=== PATIENT | male | born 1950 | race American Indian/Alaskan Native ===

== ENCOUNTER 2016-12-22 06:18 | Day surgery (SDC) | payer MEDICARE ==
[2016-12-22] MEDS ORDERED: DIPRIVAN 10 MG/ML IV ONE ×2 (06:52)
[2016-12-22] MEDS ORDERED: APRESOLINE ONE (07:29)
[2016-12-22] MEDS ORDERED: WATER FOR IRRIG STERILE IR ONE (07:30)
[2016-12-22] MEDS ORDERED: WATER FOR IRRIG STERILE ONE (07:31)
[2016-12-22] MEDS ORDERED: NACL 0.9% 1000 ML 1,000 ML IV SCH (08:00)
--- NOTE | 2016-12-22 08:30 | Short Stay Summary ---
Short Stay Documentation - Allergies and Medications Current Medications: Allergies No Known Allergies Allergy (Unverified 04/27/15 14:36) Home Medications Medication Instructions Recorded Confirmed Last Taken Type Folic Acid [Folvite] 1 mg PO QDAY 10/01/15 12/22/16 02/11/16 History NIFEdipine XL [Procardia Xl] 60 mg PO BID 10/01/15 12/22/16 12/21/16 History hydrALAZINE [Apresoline TAB] 50 mg PO BID 10/01/15 12/22/16 12/21/16 History Cinacalcet HCl [Sensipar] 60 mg PO DAILY 02/12/16 12/22/16 02/11/16 History Temazepam 30 mg PO QHS PRN 02/12/16 12/22/16 02/11/16 History Vitamin B Comp and C/FA/Zn Cit 0.8 mg PO DAILY 02/12/16 12/22/16 02/11/16 History [Dialyvite 800-Zinc 15 mg Tab] traMADol [Ultram 50 MG tab] 50 mg PO Q6HR PRN 02/12/16 12/22/16 02/11/16 History Active Medications Sodium Chloride (Nacl 0.9% 1000 Ml) 1,000 mls @ 50 mls/hr IV DIRECT ARMEN Last Admin: 12/22/16 07:29 Dose: 50 mls/hr - Brief post op/procedure progress note Date of procedure: 12/22/16 Pre-op diagnosis: Colon cancer screening Post-op diagnosis: same (1. Colon polyp 2. Diverticulosis coli 3. Internal hemorrhoids 4. Poor prep) Procedure: Colonoscopy with snare polypectomy Anesthesia: MAC Findings: as above Surgeon: MUNIR IWLKINS Estimated blood loss: none Pathology: list (1. Ascending colon polyp) Specimen disposition: to lab Condition: stable - Disposition Condition at discharge: Stable Disposition: DC- TO HOME OR SELFCARE Short Stay Discharge Plan Activity: no restrictions Weight Bearing Status: Full Weight Bearing Diet: regular, low salt, renal Follow up with: DILIA ESTEVES MD [Primary Care Provider] - 7 Days
--- NOTE | 2016-12-22 09:06 | Anesthesia Day of Surgery ---
Anesthesia Day of Surgery - Day of Surgery Patient Examined: Yes Patient H&P Reviewed: Yes Patient is NPO: Yes
--- NOTE | 2016-12-22 09:08 | Anesthesia Consultation ---
Anesthesia Consult and Med Hx Date of service: 12/22/16 - Airway Anesthetic Teeth Evaluation: Poor (chipped teeth in front) ROM Head & Neck: Adequate Mental/Hyoid Distance: Adequate Mallampati Class: Class II Intubation Access Assessment: Probably Good - Pulmonary Exam CTA: Yes - Cardiac Exam Cardiac Exam: RRR - Pre-Operative Health Status ASA Pre-Surgery Classification: ASA3 Proposed Anesthetic Plan: MAC - Pre-Anesthesia Comment Pre-Anesthesia Comments: Has Lupus - Pulmonary Hx Smoking: No Hx Asthma: No COPD: Yes - Cardiovascular System Hx Hypertension: Yes (BP was high in preop, gives 10mg hydralazine) Hx Heart Attack/AMI: No Hx Heart Murmur: Yes - Central Nervous System Hx Seizures: No CVA: No - Endocrine Hx Renal Disease: Yes (PD daily) Hx Liver Disease: Yes Hx Non-Insulin Dependent Diabetes: No - Additional Comments Anesthesia Medical History Comments: NAC
--- NOTE | 2016-12-22 11:08 | Post Anesthesia Evaluation ---
- Post Anesthesia Evaluation Patient Participated: Yes Airway Patent: Yes Stable Respiratory Function: Yes Nausea/Vomiting: No Temp > 96.8F: Yes Pain Manageable: Yes Adequeate Hydration: Yes Anesthesia Complications: No Block Receding Appropriately: Not Applicable Patient on Ventilator: No
[2016-12-22 13:00] VITALS: BP 155/93
== END 2016-12-22 06:19 | disposition home or self-care (01) ==
LOC: GIO 06:18
PROVIDERS: ATTEND Internal Medicine Gastroenterology
DX: Z12.11 Encounter for screening for malignant neoplasm of colon (principal); D12.2 Benign neoplasm of ascending colon; K64.8 Other hemorrhoids; K57.30 Diverticulosis of large intestine without perforation or abscess without bleeding; J44.9 Chronic obstructive pulmonary disease, unspecified; I12.0 Hypertensive chronic kidney disease with stage 5 chronic kidney disease or end stage renal disease; N18.6 End stage renal disease; Z99.2 Dependence on renal dialysis; Z79.899 Other long term (current) drug therapy
CPT/HCPCS: 45385; 88305; J0360; J2704; J7030

== ENCOUNTER 2017-08-10 23:57 | Inpatient (IN) | payer MEDICARE ==
[2017-08-11 03:52] LABS: Basophils % (Auto) 0.1 % (0.0-1.8); Hematocrit 38.3 % (35.5-45.6); Lymphocytes # (Auto) 0.8 K/mm3 (1.2-5.4); Lymphocytes % (Auto) 5.3 % (13.4-35.0); Mean Corpuscular HGB Conc 34 % (32-34); Mean Corpuscular Hemoglobin 28 pg (28-32); Mean Corpuscular Volume 82 fl (84-94); Monocytes # (Auto) 1.1 K/mm3 (0.0-0.8); Monocytes % (Auto) 7.2 % (0.0-7.3); Platelet Count 308 K/mm3 (140-440); Red Blood Count 4.67 M/mm3 (3.65-5.03); Red Cell Distribution Width 15.4 % (13.2-15.2)
[2017-08-11 04:09] LABS: Albumin 3.2 g/dL (3.9-5); Calcium 9.2 mg/dL (8.4-10.2)
[2017-08-11] MEDS ORDERED: MORPHINE IV ONE (06:19)
--- NOTE | 2017-08-11 06:47 | Emergency Department Report ---
HPI - General Chief Complaint: Abdominal Pain Time Seen by Provider: 08/11/17 06:08 - HPI HPI: 67-year-old -[place] male presents to the emergency department from home with complaint of a two-day history of generalized abdominal pain, worse in the lower quadrants. It is associated with some nausea and vomiting but he says that part has been "mild." He describes it as abdominal cramping, 10 out of 10 in intensity. The patient has a history of end-stage renal disease on nightly peritoneal dialysis and he has been unable to complete the entire dialysis secondary to the discomfort which worsens during the peritoneal dialysis. He also has a past medical history of COPD not oxygen dependent, hypertension, lupus. The patient's veterinary technician assistant is Dr. Diehl and he has a primary care physician but cannot currently remember their name. No recent travel or sick contacts at home. He denies any chest pain, shortness of breath , fever. ED Past Medical Hx - Past Medical History Previous Medical History?: Yes Hx Hypertension: Yes (BP was high in preop, gives 10mg hydralazine) Hx Heart Attack/AMI: No Hx Liver Disease: Yes (now resolved) Hx Renal Disease: Yes (PD daily) Hx Arthritis: Yes Hx Seizures: No Hx Asthma: No Hx COPD: Yes Additional medical history: Lupus. Patient states he's had multiple failed dialysis grafts to include both arms upper and lower. He currently has a vas cath in the right chest - Surgical History Past Surgical History?: Yes Additional Surgical History: Right hip replacement x 2, Left hip replacement x 1. umbilical hernia repair. two fistulas to right wrist 06/2015, not working. right chest VAS cath. right upper arm fistula, not working. - Social History Smoking Status: Former Smoker Substance Use Type: None - Medications Home Medications: Home Medications Medication Instructions Recorded Confirmed Last Taken Type NIFEdipine XL [Procardia Xl] 60 mg PO BID 10/01/15 08/11/17 08/10/17 History Cinacalcet HCl [Sensipar] 60 mg PO DAILY 02/12/16 08/11/17 02/11/16 History Calcitriol [Rocaltrol] 0.5 mcg PO TID 08/11/17 08/11/17 Unknown History Docusate Sodium [Colace] 100 mg PO BID PRN 08/11/17 08/11/17 08/10/17 History Ergocalciferol [Vitamin D2] 1 cap PO QWEEK 08/11/17 08/11/17 08/10/17 History Fluticasone [Flonase] 2 spray NS QDAY 08/11/17 08/11/17 Unknown History Hydralazine HCl 50 mg PO BID 08/11/17 08/11/17 08/10/17 History Hydroxychloroquine [Plaquenil] 200 mg PO QDAY 08/11/17 08/11/17 08/10/17 History Sevelamer Carbonate [Renvela] 800 mg PO TIDWM 08/11/17 08/11/17 Unknown History predniSONE [Deltasone] 10 mg PO TID 08/11/17 08/11/17 Unknown History sulfaSALAzine [Azulfidine] 500 mg PO QDAY 08/11/17 08/11/17 Unknown History ED Review of Systems ROS: Stated complaint: ABD PAIN Other details as noted in HPI Comment: All other systems reviewed and negative Constitutional: denies: chills, fever Eyes: denies: eye pain, eye discharge, vision change ENT: denies: ear pain, throat pain Respiratory: denies: cough, shortness of breath, wheezing Cardiovascular: denies: chest pain, palpitations Gastrointestinal: abdominal pain, nausea, vomiting Genitourinary: denies: urgency, dysuria Musculoskeletal: denies: back pain, joint swelling, arthralgia Skin: denies: rash, lesions Neurological: denies: headache, weakness, paresthesias Physical Exam - Physical Exam Vital Signs: Vital Signs 08/11/17 08/11/17 08/11/17 02:35 05:32 05:45 Temperature 99 F Pulse Rate 114 H 91 H 101 H Respiratory 18 22 23 Rate Blood Pressure 151/102 132/85 O2 Sat by Pulse 99 96 Oximetry 08/11/17 08/11/17 06:00 06:15 Temperature Pulse Rate 102 H 101 H Respiratory 26 H 22 Rate Blood Pressure 133/88 141/89 O2 Sat by Pulse 96 96 Oximetry Physical Exam: GENERAL: The patient is well-developed well-nourished. HENT: Normocephalic. Atraumatic. Patient has moist mucous membranes. EYES: Extraocular motions are intact. Pupils equal reactive to light bilaterally. NECK: Supple. Trachea is midline. CHEST/LUNGS: Clear to auscultation. Mild tachypnea but no accessory muscle use. There is no respiratory distress noted. HEART/CARDIOVASCULAR: Regular. There is mild tachycardia. There is no murmur. ABDOMEN: Abdomen is soft. There is generalized tenderness to palpation of the abdomen. No guarding. There is a peritoneal catheter in the right lower quadrant of the abdomen. Patient has normal bowel sounds. There is no abdominal distention. SKIN: Skin is warm and dry. NEURO: The patient is awake, alert, and oriented. The patient is cooperative. The patient has no focal neurologic deficits. The patient has normal speech. MUSCULOSKELETAL: There is no tenderness or deformity. There is no limitation range of motion. There is no evidence of acute injury. ED Course Vital Signs 08/11/17 08/11/17 08/11/17 02:35 05:32 05:45 Temperature 99 F Pulse Rate 114 H 91 H 101 H Respiratory 18 22 23 Rate Blood Pressure 151/102 132/85 O2 Sat by Pulse 99 96 Oximetry 08/11/17 08/11/17 06:00 06:15 Temperature Pulse Rate 102 H 101 H Respiratory 26 H 22 Rate Blood Pressure 133/88 141/89 O2 Sat by Pulse 96 96 Oximetry - Consultations Consultation #1: 08/11/17 14:19 I spoke to his veterinary technician assistant, Dr. Diehl, who says that they have been checking him for a cell count when he was seen yesterday for these symptoms. Dr. Diehl also recommends admission so they can try and get him peritoneal dialysis and do further evaluation of his abdominal pain. ED Medical Decision Making - Lab Data Result diagrams: 08/11/17 02:59 08/11/17 02:59 - Radiology Data Radiology results: report reviewed EXAM: CT ABDOMEN PELVIS WO CON HISTORY: Abd pain, concern for peritonitis, peritoneal dialysis associated pain TECHNIQUE: CT images obtained through the Abdomen and Pelvis without contrast. Transaxial,coronal and sagittal reformats are provided. PRIORS: 10/01/2015 FINDINGS: Imaged intrathoracic contents are remarkable for pleural calcification, unchanged right pleural effusion and probable right lower lung rounded atelectasis, all of which appear similar to prior. Left basilar atelectasis/scarring. Trace left pleural effusion. Kidneys are normal in size, axis and position. There is bilateral renal cortical irregularity/scarring. Multiple indeterminate cystic lesions in both kidneys appear similar to prior. A previously seen left lower pole renal cyst measuring up to 3.7 cm on 10/01/2015 is no longer seen. No hydroureteronephrosis. Multiple renal vascular calcifications are present. There may be additional 1 millimeter nonobstructive stones in both collecting systems. No stones are seen within the urinary bladder. The pelvis is partially obscured by streak artifact associated with bilateral hip arthroplasties. A right anterior approach peritoneal dialysis catheter is coiled adjacent to the rectosigmoid junction. No abdominal ascites or adjacent focal fluid collection is identified. The liver, gallbladder, pancreas, spleen, and adrenal glands demonstrate a normal noncontrast appearance. Hollow enteric organs are normal in course and caliber. Large portions of the small bowel and colon are fluid-filled. No edema or stranding is seen adjacent to the intestines. Scattered foci of pneumoperitoneum are noted. No findings of acute appendicitis. Aorta is normal in course and caliber with scattered atherosclerosis. Superficial soft tissues are otherwise unremarkable. No acute or aggressive appearing skeletal findings. Bilateral total hip arthroplasties. IMPRESSION: No abdominal or pelvic ascites or focal fluid collection to suggest abscess formation. Peritoneal dialysis catheter coiled within the pelvis is without associated fluid. There are small foci of free air in the abdomen, which are likely iatrogenic in the setting of dialysis. Fluid throughout much of the small bowel and colon may be infectious or inflammatory in etiology. There is no evident wall thickening, adjacent edema or stranding. Chronic right fibrothorax with pleural effusion and rounded atelectasis appears similar to 10/01/2015. Multiple indeterminate cystic lesions in both kidneys appear similar to 10/01/2015. The largest left renal lesion seen on prior exam is no longer identified today and may have involuted/ruptured. Consider follow-up noncontrast MRI of the kidneys if no additional studies are available for comparison. Dr. Demarco discussed findings with Dr. Stringer at 0646 central Time on 08/11/2017 immediately following the examination. Transcribed By: MB Dictated By: CAITLYN DEMARCO MD Electronically Authenticated By: CAITLYN DEMARCO MD Signed Date/Time: 08/11/17 1140 - Medical Decision Making Patient presents with generalized abdominal pain and was sent in to rule out peritonitis. Patient does have a leukocytosis with a mild left shift but is afebrile. He has some generalized abdominal pain but they do not appear to be peritoneal signs. Urinalysis shows a urinary tract infection. He was started on some IV antibiotics. I spoke to his veterinary technician assistant, Dr. Diehl, who says that they have been checking him for a cell count when he was seen yesterday for these symptoms. Dr. Diehl also recommends admission so they can try and get him peritoneal dialysis and do further evaluation of his abdominal pain. Critical Care Time: No Critical care attestation.: If time is entered above; I have spent that time in minutes in the direct care of this critically ill patient, excluding procedure time. ED Disposition Clinical Impression: Peritoneal dialysis catheter in place, ESRD needing dialysis Abdominal pain Qualifiers: Abdominal location: generalized Qualified Code(s): R10.84 - Generalized abdominal pain UTI (urinary tract infection) Qualifiers: Urinary tract infection type: acute cystitis Hematuria presence: without hematuria Qualified Code(s): N30.00 - Acute cystitis without hematuria Disposition: OP ADMIT IP TO THIS HOSP Is pt being admited?: Yes Condition: Stable Time of Disposition: 11:39
[2017-08-11] MEDS ORDERED: BENADRYL ONE (07:04)
[2017-08-11] MEDS: BENADRYL IV ONE ×2 (07:07→09:58)
[2017-08-11 07:17] LABS: Bilirubin,Urine NEG (Negative); Blood,Urine NEG (Negative); Color,Urine Yellow (Yellow); Mucus,Urine FEW /HPF; Urobilinogen,Urine < 2.0 mg/dL (<2.0)
--- NOTE | 2017-08-11 07:58 | Cat Scan Report ---
FINAL REPORT EXAM: CT ABDOMEN PELVIS WO CON HISTORY: Abd pain, concern for peritonitis, peritoneal dialysis associated pain TECHNIQUE: CT images obtained through the Abdomen and Pelvis without contrast. Transaxial,coronal and sagittal reformats are provided. PRIORS: 10/01/2015 FINDINGS: Imaged intrathoracic contents are remarkable for pleural calcification, unchanged right pleural effusion and probable right lower lung rounded atelectasis, all of which appear similar to prior. Left basilar atelectasis/scarring. Trace left pleural effusion. Kidneys are normal in size, axis and position. There is bilateral renal cortical irregularity/scarring. Multiple indeterminate cystic lesions in both kidneys appear similar to prior. A previously seen left lower pole renal cyst measuring up to 3.7 cm on 10/01/2015 is no longer seen. No hydroureteronephrosis. Multiple renal vascular calcifications are present. There may be additional 1 millimeter nonobstructive stones in both collecting systems. No stones are seen within the urinary bladder. The pelvis is partially obscured by streak artifact associated with bilateral hip arthroplasties. A right anterior approach peritoneal dialysis catheter is coiled adjacent to the rectosigmoid junction. No abdominal ascites or adjacent focal fluid collection is identified. The liver, gallbladder, pancreas, spleen, and adrenal glands demonstrate a normal noncontrast appearance. Hollow enteric organs are normal in course and caliber. Large portions of the small bowel and colon are fluid-filled. No edema or stranding is seen adjacent to the intestines. Scattered foci of pneumoperitoneum are noted. No findings of acute appendicitis. Aorta is normal in course and caliber with scattered atherosclerosis. Superficial soft tissues are otherwise unremarkable. No acute or aggressive appearing skeletal findings. Bilateral total hip arthroplasties. IMPRESSION: No abdominal or pelvic ascites or focal fluid collection to suggest abscess formation. Peritoneal dialysis catheter coiled within the pelvis is without associated fluid. There are small foci of free air in the abdomen, which are likely iatrogenic in the setting of dialysis. Fluid throughout much of the small bowel and colon may be infectious or inflammatory in etiology. There is no evident wall thickening, adjacent edema or stranding. Chronic right fibrothorax with pleural effusion and rounded atelectasis appears similar to 10/01/2015. Multiple indeterminate cystic lesions in both kidneys appear similar to 10/01/2015. The largest left renal lesion seen on prior exam is no longer identified today and may have involuted/ruptured. Consider follow-up noncontrast MRI of the kidneys if no additional studies are available for comparison. Dr. Villaseñor discussed findings with Dr. Stringer at 0646 central Time on 08/11/2017 immediately following the examination.
[2017-08-11] MEDS ORDERED: LEVAQUIN 750MG/150ML 750 MG/150 ML BAG IV ONE (08:16)
--- NOTE | 2017-08-11 11:53 | History and Physical Report ---
History of Present Illness Date of examination: 08/11/17 Date of admission: 08/11/17 Chief complaint: abdominal pain History of present illness: 67-year-old -[place] male with h/o ESRD on PD, HTN and Lupus presents to the emergency department from home with complaint of a two-day history of generalized abdominal pain, associated with some nausea and vomiting. He describes it as abdominal cramping, 10 out of 10 in intensity. The patient's fire alarm inspector is Dr. Diehl and he was seen by dr diehl on Mon, when he complained about abd pain along with constipation and bloating, however no fever, chills, nausea, vomiting, dysuria, CP, SOB reported at that time. Patient was given stool softners/laxative, also obtained peritoneal Cx, and cell count. Pt's abdominal pain worsened progressively despite having BMs and last night intensity was 10/10. He has been unable to complete the entire dialysis last night secondary to the abdominal discomfort which prompted him to present to ER. In the ER his work up showed elevated white count, abdominal tenderness and UA suggestive of UTI. Cell count from outpatient PD clinic showed WBC count > 4000, with 38% mononuclear and 61% polymorph, RBC 76, which is consistent with acute peritonitis. Patient denies any recent travel or sick contacts at home. He denies any chest pain, shortness of breath, fever. He is getting admitted for further work up and evaluation. Past History Past Medical History: ESRD, hypertension, other (lupus) Past Surgical History: hernia repair, total hip replacement, Other (multiple AV fistula placement proceedings) Social history: Lives alone. denies: smoking, alcohol abuse, prescription drug abuse, IV drug use Family history: hypertension Medications and Allergies Allergies Allergy/AdvReac Type Severity Reaction Status Date / Time No Known Allergies Allergy Unverified 04/27/15 14:36 Home Medications Medication Instructions Recorded Confirmed Last Taken Type NIFEdipine XL [Procardia Xl] 60 mg PO BID 10/01/15 08/11/17 08/10/17 History Cinacalcet HCl [Sensipar] 60 mg PO DAILY 02/12/16 08/11/17 02/11/16 History Calcitriol [Rocaltrol] 0.5 mcg PO TID 08/11/17 08/11/17 Unknown History Docusate Sodium [Colace] 100 mg PO BID PRN 08/11/17 08/11/1708/10/18 History Ergocalciferol [Vitamin D2] 1 cap PO QWEEK 08/11/17 08/11/17 08/10/17 History Fluticasone [Flonase] 2 spray NS QDAY 08/11/17 08/11/17 Unknown History Hydralazine HCl 50 mg PO BID 08/11/17 08/11/17 08/10/17 History Hydroxychloroquine [Plaquenil] 200 mg PO QDAY 08/11/17 08/11/17 08/10/17 History Sevelamer Carbonate [Renvela] 800 mg PO TIDWM 08/11/17 08/11/17 Unknown History predniSONE [Deltasone] 10 mg PO TID 08/11/17 08/11/17 Unknown History sulfaSALAzine [Azulfidine] 500 mg PO QDAY 08/11/17 08/11/17 Unknown History Active Meds: Active Medications Heparin Sodium (Porcine) (Heparin) 5,000 unit SUB-Q Q8HR [facility] Peritoneal Dialysis Solution (Dianeal Low Calcium W/1.5% Dextrose) 2,000 ml IP Q6HR [facility] Review of Systems Constitutional: no weight loss, no fever, no chills, no anorexia Cardiovascular: no chest pain, no palpitations, no edema, no dyspnea on exertion Respiratory: no cough, no shortness of breath, no wheezing Gastrointestinal: abdominal pain, nausea, vomiting, no constipation, no coffee ground emesis, no BRBPR Genitourinary Male: no urinary frequency, no urinary hesitancy Musculoskeletal: no neck stiffness, no low back pain Integumentary: no rash, no pruritis Neurological: no weakness, no numbness, no tingling, no ataxia Psychiatric: no anxiety, no memory loss, no change in appetite Endocrine: no cold intolerance, no heat intolerance, no polyphagia, no polydipsia, no polyuria Hematologic/Lymphatic: no easy bruising, no easy bleeding Allergic/Immunologic: no urticaria, no seasonal allergies Exam - Constitutional Vitals: Temp Pulse Resp BP Pulse Ox 99 F 101 H 32 H 126/85 98 08/11/17 02:35 08/11/17 07:00 08/11/17 07:00 08/11/17 07:00 08/11/17 07:00 General appearance: Present: mild distress, well-nourished - EENT Eyes: Present: PERRL ENT: hearing intact, clear oral mucosa - Neck Neck: Present: supple, normal ROM - Respiratory Respiratory effort: normal Respiratory: bilateral: CTA - Cardiovascular Heart Sounds: Present: S1 & S2. Absent: rub, click - Extremities Extremities: pulses symmetrical, No edema Peripheral Pulses: within normal limits - Abdominal General gastrointestinal: Present: soft, tender, non-distended, normal bowel sounds - Integumentary Integumentary: Present: clear, warm, dry - Musculoskeletal Musculoskeletal: gait normal, strength equal bilaterally - Psychiatric Psychiatric: appropriate mood/affect, intact judgment & insight - Neurologic Neurologic: CNII-XII intact, moves all extremities Results - Labs CBC & Chem 7: 08/12/17 04:30 08/12/17 04:30 Labs: Abnormal lab results 08/11/17 08/11/17 08/11/17 Range/Units 02:59 02:59 06:30 WBC 15.7 H (4.5-11.0) K/mm3 MCV 82 L (84-94) fl RDW 15.4 H (13.2-15.2) % Lymph % (Auto) 5.3 L (13.4-35.0) % Lymph # 0.8 L (1.2-5.4) K/mm3 Cole # 1.1 H (0.0-0.8) K/mm3 Seg Neutrophils % 87.4 H (40.0-70.0) % Seg Neutrophils # 13.7 H (1.8-7.7) K/mm3 Sodium 136 L (137-145) mmol/L Chloride 95.8 L (98-107) mmol/L BUN 40 H (9-20) mg/dL Creatinine 8.0 H (0.8-1.5) mg/dL Glucose 112 H (75-100) mg/dL Albumin 3.2 L (3.9-5) g/dL Urine WBC (Auto) 106.0 H (0.0-6.0) /HPF - Imaging and Cardiology CT scan - abdomen: report reviewed (no focal fluid collection to describe abdominal or pelvic abscess) Assessment and Plan Abdomianl pain with n/v due to SBP ESRD, on HD Sepsis due to UTI/SBP Peritonitis/ SBP UTI HTN, uncontrolled h/o Lupus Anemia of CD -Admit to remote tele -send peritoneal fluid for gm stain and CX - Place on empiric abx - consulted nephrology for HD - resume home meds, follow cx - Cont PD per nephrology - heparin for DVT
[2017-08-11] MEDS ORDERED: MORPHINE IV PRN (11:55)
[2017-08-11] MEDS ORDERED: ZOFRAN IV PRN (11:55)
[2017-08-11] MEDS ORDERED: NON-FORMULARY (Sevelamer Carbonate [Renvela] 800 MG) PO SCH (12:00)
[2017-08-11] MEDS ORDERED: TYLENOL PO PRN (13:00)
[2017-08-11] MEDS ORDERED: ROCALTROL PO SCH (14:00)
[2017-08-11] MEDS ORDERED: VANCOMYCIN/NS 1 GM/250 ML 1 GM/250 ML BAG IV SCH (14:00)
--- NOTE | 2017-08-11 14:06 | Consultation ---
History of Present Illness - Reason for Consult Consult date: 08/11/17 end stage renal disease Requesting physician: MARIA T STEWART - History of Present Illness This is a 67 yo AAM with past medical history of hypertension, lupus, ESRD on PD , after having multiple AV access failures, now presenting with diffuse abdominal pain for the last 2-3 days. Pt was seen by me at PD clinic on Mon, when he started to complain about abd pain along with constipation and bloating , however no fever, chills, nausea, vomiting, dysuria, CP, SOB reported at that time. pt was given stool softners/laxative, we also obtained peritoneal Cx, and cell count. pt's abdominal pain worsened progressively despite having BMs and last night intensity was 10/10 which prompted him to present to ER. Cell count from outpatient PD clinic showed WBC count > 4000, with 38% mononuclear and 61% polymorph, RBC 76, which is consistent with acute peritonitis. UA also showed e/ o UTI. Renal consult requested for management of ESRD/PD and treatment of peritonitis Past History Past Medical History: ESRD, hypertension, other (lupus) Past Surgical History: hernia repair, total hip replacement, Other (multiple AV fistula placement proceedings) Social history: Lives alone. denies: smoking, alcohol abuse, prescription drug abuse, IV drug use Family history: hypertension Medications and Allergies Allergies Allergy/AdvReac Type Severity Reaction Status Date / Time No Known Allergies Allergy Unverified 04/27/15 14:36 Home Medications Medication Instructions Recorded Confirmed Last Taken Type NIFEdipine XL [Procardia Xl] 60 mg PO BID 10/01/15 08/11/17 08/10/17 History Cinacalcet HCl [Sensipar] 60 mg PO DAILY 02/12/16 08/11/17 02/11/16 History Calcitriol [Rocaltrol] 0.5 mcg PO TID 08/11/17 08/11/17 Unknown History Docusate Sodium [Colace] 100 mg PO BID PRN 08/11/17 08/11/17 08/10/17 History Ergocalciferol [Vitamin D2] 1 cap PO QWEEK 08/11/17 08/11/17 08/10/17 History Fluticasone [Flonase] 2 spray NS QDAY 08/11/17 08/11/17 Unknown History Hydralazine HCl 50 mg PO BID 0308/11/17 08/10/17 History Hydroxychloroquine [Plaquenil] 200 mg PO QDAY 08/11/17 08/11/17 08/10/17 History Sevelamer Carbonate [Renvela] 800 mg PO TIDWM 08/11/17 08/11/17 Unknown History predniSONE [Deltasone] 10 mg PO TID 08/11/17 08/11/17 Unknown History sulfaSALAzine [Azulfidine] 500 mg PO QDAY 08/11/17 08/11/17 Unknown History Active Meds: Active Medications Acetaminophen (Tylenol) 650 mg PO Q4H PRN PRN Reason: Pain MILD(1-3)/Fever >100.5/HINES Calcitriol (Rocaltrol) 0.5 mcg PO TID [facility] Cinacalcet (Sensipar) 60 mg PO QDAY [facility] Docusate Sodium (Colace) 100 mg PO BID PRN PRN Reason: Constipation Ergocalciferol (Vitamin D2) 50,000 unit PO Th [facility] Famotidine (Pepcid) 20 mg IV QDAY [facility] Fluticasone Propionate (Flonase) 100 mcg NS QDAY [facility] Heparin Sodium (Porcine) (Heparin) 5,000 unit SUB-Q Q8HR [facility] Hydralazine HCl (Apresoline) 50 mg PO BID [facility] Hydroxychloroquine Sulfate (Plaquenil) 200 mg PO QDAY [facility] Ceftriaxone Sodium 1 gm/ (Sodium Chloride) 20 mls @ 2 mls/min IV Q12H [facility] Morphine Sulfate (Morphine) 2 mg IV Q4H PRN PRN Reason: Pain, Moderate (4-6) Nifedipine (Procardia Xl) 60 mg PO BID [facility] Ondansetron HCl (Zofran) 4 mg IV Q8H PRN PRN Reason: Nausea And Vomiting Oxycodone/Acetaminophen (Percocet 5/325) 1 tab PO Q6H PRN PRN Reason: Pain, Moderate (4-6) Peritoneal Dialysis Solution (Dianeal Low Calcium W/1.5% Dextrose) 2,000 ml IP Q6HR [facility] Prednisone (Deltasone) 10 mg PO TID [facility] Sevelamer Carbonate (Renvela) 800 mg PO AC [facility] Sodium Chloride (Sodium Chloride Flush Syringe 10 Ml) 10 ml IV BID [facility] Sodium Chloride (Sodium Chloride Flush Syringe 10 Ml) 10 ml IV PRN PRN PRN Reason: LINE FLUSH Sulfasalazine (Azulfidine) 500 mg PO QDAY [facility] Review of Systems All systems: negative Constitutional: weakness, malaise Gastrointestinal: abdominal pain, nausea, constipation, loss of appetite Exam - Vital Signs Vital signs: Vital Signs Temp Pulse Resp BP Pulse Ox 99 F 114 H 18 151/102 99 08/11/17 02:35 08/11/17 02:35 08/11/17 02:35 08/11/17 02:35 08/11/17 02:35 - General Appearance General appearance: well-developed, well-nourished, appears stated age, moderate distress EENT: ATNC, PERRL, mucous membranes moist Neck: Present: neck supple Respiratory: Clear to Ascultation Heart: regular, S1S2 Gastrointestinal: Present: normoactive bowel sounds, tenderness, distended, other (PD cath site c/d/i ) Integumentary: no rash, other (no edema ) Neurologic: no focal deficit, alert and oriented x3, strength 5/5, CN 3-12 intact Psychiatric: mood/affect appropriate, cooperative Results - Lab Results 08/11/17 02:59 08/11/17 02:59 Most recent lab results Calcium 9.2 mg/dL (8.4-10.2) 08/11/17 02:59 Laboratory Tests 08/11/17 08/11/17 02:59 06:30 Calcium 9.2 Total Bilirubin 0.50 AST 13 ALT 7 Alkaline Phosphatase 81 Total Protein 7.4 Albumin/Globulin Ratio 0.8 Urine Color Yellow Urine Turbidity Clear Urine pH 7.0 Ur Specific [place] 1.015 Urine Protein 100 mg/dl Urine Glucose (UA) 50 Urine Ketones Neg Urine Blood Neg Urine Nitrite Neg Urine Bilirubin Neg Urine Urobilinogen < 2.0 Ur Leukocyte Esterase Lg Urine WBC (Auto) 106.0 H Urine RBC (Auto) 6.0 U Epithel Cells (Auto) 7.0 Urine Mucus Few Assessment and Plan - Patient Problems (1) Peritonitis Current Visit: Yes Status: Acute Plan to address problem: awaiting peritoneal culture result. cont empiric treatment with IV vanco by level and cefepime for now. will send repeat peritoneal cell count in AM. further management depending on peritoneal culture/sensitivities (2) ESRD needing dialysis Current Visit: Yes Status: Chronic Plan to address problem: cont PD with 2.5% dineal solution, 2L dwell volume 4x daily (3) UTI (urinary tract infection) Current Visit: Yes Status: Acute Qualifiers: Urinary tract infection type: acute cystitis Hematuria presence: without hematuria Qualified Code(s): N30.00 - Acute cystitis without hematuria Plan to address problem: ABXs treatment as above (4) Hypertension Current Visit: No Status: Acute Plan to address problem: BP controlled (5) Secondary hyperparathyroidism (of renal origin) Current Visit: Yes Status: Acute Plan to address problem: cont sensipar/calcitriol
[2017-08-11] MEDS ORDERED: cefTRIAXone 1 GM in NACL 0.9% 20 ML IV SCH (14:30)
[2017-08-11] MEDS ORDERED: MAXIPIME/NS 2 GM/100 ML 2 GM/100 ML BAG IV SCH (15:00)
[2017-08-11] MEDS ORDERED: VANCOMYCIN 1,250 MG in NACL 0.9% 250ML 250 ML IV ONE (15:30)
[2017-08-11] MEDS: DIANEAL LOW CALCIUM W/1.5% DEXTROSE IP SCH ×3 (16:05→23:09)
[2017-08-11] MEDS ORDERED: HEPARIN ONE (16:08)
[2017-08-11] MEDS: HEPARIN SUB-Q SCH ×2 (16:12→21:52)
[2017-08-11] MEDS ORDERED: DELTASONE ONE (16:15)
[2017-08-11] MEDS: DELTASONE PO SCH ×2 (16:17→20:55)
[2017-08-11] MEDS: MAXIPIME 1 GM in NACL 0.9% 20 ML IV SCH (18:43)
[2017-08-11] MEDS: RENVELA PO SCH (18:54)
[2017-08-11] MEDS: SODIUM CHLORIDE FLUSH SYRINGE 10 ML IV PRN (19:30)
[2017-08-11] MEDS: APRESOLINE PO SCH (21:50)
[2017-08-11] MEDS: PROCARDIA XL PO SCH (21:50)
[2017-08-11] MEDS: ROCALTROL PO SCH (21:51)
[2017-08-11] MEDS: PERCOCET 5/325 PO PRN (21:52)
[2017-08-11] MEDS ORDERED: NON-FORMULARY (Hydralazine Hcl [Hydralazine Hcl] 50 MG) PO SCH (22:00)
[2017-08-11] MEDS ORDERED: ROCEPHIN/NS 1 GM/50 ML 1 GM/50 ML BAG IV SCH (22:00)
[2017-08-11] MEDS: SODIUM CHLORIDE FLUSH SYRINGE 10 ML IV SCH (22:05)
[2017-08-12 05:35] LABS: Basophils % (Auto) 0.1 % (0.0-1.8); Hematocrit 36.6 % (35.5-45.6); Hemoglobin 12.5 gm/dl (11.8-15.2); Lymphocytes # (Auto) 0.8 K/mm3 (1.2-5.4); Lymphocytes % (Auto) 8.4 % (13.4-35.0); Mean Corpuscular HGB Conc 34 % (32-34); Mean Corpuscular Hemoglobin 28 pg (28-32); Mean Corpuscular Volume 83 fl (84-94); Monocytes # (Auto) 0.3 K/mm3 (0.0-0.8); Platelet Count 275 K/mm3 (140-440); Red Cell Distribution Width 15.1 % (13.2-15.2)
[2017-08-12] MEDS: DIANEAL LOW CALCIUM W/1.5% DEXTROSE IP SCH ×3 (05:49→18:43)
[2017-08-12] MEDS: HEPARIN SUB-Q SCH ×3 (06:12→22:15)
[2017-08-12 06:21] LABS: Calcium 8.6 mg/dL (8.4-10.2)
[2017-08-12] MEDS: DELTASONE PO SCH ×3 (08:18→20:29)
[2017-08-12] MEDS: RENVELA PO SCH ×3 (08:18→16:37)
[2017-08-12] MEDS: APRESOLINE PO SCH ×2 (09:44→22:14)
[2017-08-12] MEDS: PEPCID IV SCH (09:44)
[2017-08-12] MEDS: FLONASE NS SCH (09:46)
[2017-08-12] MEDS: ROCALTROL PO SCH ×2 (09:47→22:14)
[2017-08-12] MEDS: PROCARDIA XL PO SCH ×2 (09:47→22:15)
[2017-08-12] MEDS: PLAQUENIL PO SCH (09:47)
[2017-08-12] MEDS: AZULFIDINE PO SCH (09:48)
[2017-08-12] MEDS: SODIUM CHLORIDE FLUSH SYRINGE 10 ML IV SCH ×2 (09:53→22:16)
[2017-08-12] MEDS ORDERED: NON-FORMULARY (Cinacalcet Hcl [Sensipar] 60 MG) PO SCH (10:00)
[2017-08-12] MEDS ORDERED: SENSIPAR PO SCH (10:00)
--- NOTE | 2017-08-12 12:37 | Progress Note ---
Assessment and Plan Abdomianl pain with n/v due to SBP ESRD, on HD Sepsis due to UTI/SBP Peritonitis/ SBP UTI HTN, uncontrolled h/o Lupus Anemia of CD -send peritoneal fluid for gm stain and CX following PD - consulted on empiric abx - resumed home meds, follow cx - Cont PD per nephrology - heparin for DVT Brief History: 67-year-old -Surinamese male with h/o ESRD on PD, HTN and Lupus presents to the emergency department from home with complaint of a two- day history of generalized abdominal pain, associated with some nausea and vomiting. Patient was given stool softners/laxative outpt, also obtained peritoneal Cx, and cell count. Cell count from outpatient PD clinic showed WBC count > 4000, with 38% mononuclear and 61% polymorph, RBC 76, which is consistent with acute peritonitis. He was admitted for further work up and evaluation. physical exam: General appearance: Present: mild distress, well-nourished - EENT Eyes: Present: PERRL ENT: hearing intact, clear oral mucosa - Neck Neck: Present: supple, normal ROM - Respiratory Respiratory effort: normal Respiratory: bilateral: CTA - Cardiovascular Heart Sounds: Present: S1 & S2. Absent: rub, click - Extremities Extremities: pulses symmetrical, No edema Peripheral Pulses: within normal limits - Abdominal General gastrointestinal: Present: soft, tender, non-distended, normal bowel sounds - Integumentary Integumentary: Present: clear, warm, dry - Musculoskeletal Musculoskeletal: gait normal, strength equal bilaterally - Psychiatric Psychiatric: appropriate mood/affect, intact judgment & insight - Neurologic Neurologic: CNII-XII intact, moves all extremities Subjective Date of service: 08/12/17 Interval history: Pt seen and examined states abdominal pain much improved tolerating diet Objective - Constitutional Vitals: Vital Signs - 12hr 08/12/17 08/12/17 08/12/17 02:58 07:35 09:44 Temperature 98.4 F 98.0 F Pulse Rate 90 100 H 100 H Pulse Rate [ Apical] Respiratory 20 18 Rate Blood Pressure 153/102 133/71 133/71 O2 Sat by Pulse 95 94 Oximetry 08/12/17 10:00 Temperature Pulse Rate Pulse Rate [ 100 H Apical] Respiratory 18 Rate Blood Pressure O2 Sat by Pulse 94 Oximetry - Labs CBC & Chem 7: 08/12/17 04:30 08/12/17 04:30 Labs: Abnormal lab results 08/12/17 08/12/17 Range/Units 04:30 04:30 MCV 83 L (84-94) fl Lymph % (Auto) 8.4 L (13.4-35.0) % Lymph # 0.8 L (1.2-5.4) K/mm3 Seg Neutrophils % 88.5 H (40.0-70.0) % Seg Neutrophils # 8.7 H (1.8-7.7) K/mm3 Chloride 96.7 L (98-107) mmol/L BUN 50 H (9-20) mg/dL Creatinine 9.2 H (0.8-1.5) mg/dL
[2017-08-12] MEDS: MAXIPIME 1 GM in NACL 0.9% 20 ML IV SCH (15:21)
[2017-08-12] MEDS: SODIUM CHLORIDE FLUSH SYRINGE 10 ML IV PRN (15:22)
[2017-08-12] MEDS: PERCOCET 5/325 PO PRN (15:27)
--- NOTE | 2017-08-12 16:10 | Progress Note ---
Assessment and Plan - Patient Problems (1) Peritonitis Current Visit: Yes Status: Acute Plan to address problem: PD fluid cell count was high. Follow up PD fluid culture and sensitivity. Continue empiric antibiotics for now (2) Hypertensive chronic kidney disease with stage 5 chronic kidney disease or end stage renal disease Current Visit: Yes Status: Acute Plan to address problem: Follow up blood pressure on current medications (3) Secondary hyperparathyroidism (of renal origin) Current Visit: Yes Status: Acute Plan to address problem: Give Sensipar on calcitriol at bedtime to avoid nausea (4) ESRD needing dialysis Current Visit: Yes Status: Chronic Plan to address problem: Resume peritoneal dialysis. Subjective Date of service: 08/12/17 Principal diagnosis: ESRD with Peritonitis Interval history: Patient seen lying in bed. He feels better today. Pain is improved. Patient had vomiting after taking Sensipar and calcitriol. He usually takes them at bedtime to avoid this symptom. Just received his first peritoneal dialysis exchange since admission. Objective - Exam Narrative Exam: Elderly male lying in bed in no acute distress HEENT: NCAT, pink oral mucous membrane Neck: Supple, no venous distention CVS: S1S2 RRR with no murmur, rub or gallop Chest: Clear to auscultation Abdomen: Protuberant, soft, tenderness with rebound, no organomegaly, bowel sounds are present Extremities: No edema Neuro: Awake, alert no focal deficits - Vital Signs Vital signs: Vital Signs - 12hr 08/12/17 08/12/17 08/12/17 07:35 09:44 10:00 Temperature 98.0 F Pulse Rate 100 H 100 H Pulse Rate [ 100 H Apical] Respiratory 18 18 Rate Blood Pressure 133/71 133/71 O2 Sat by Pulse 94 94 Oximetry 08/12/17 08/12/17 14:02 15:27 Temperature 98.0 F Pulse Rate Pulse Rate [ Apical] Respiratory 20 18 Rate Blood Pressure 119/75 O2 Sat by Pulse Oximetry - Lab 08/12/17 04:30 08/12/17 04:30 Most recent lab results Calcium 8.6 mg/dL (8.4-10.2) 08/12/17 04:30
[2017-08-12 21:56] LABS: Total Cells Counted 100 /mm3
[2017-08-12] MEDS: SENSIPAR PO SCH (22:14)
[2017-08-13] MEDS: DIANEAL LOW CALCIUM W/1.5% DEXTROSE IP SCH ×4 (01:00→18:13)
[2017-08-13] MEDS: PERCOCET 5/325 PO PRN ×2 (02:29→13:54)
[2017-08-13 04:38] LABS: Hematocrit 36.5 % (35.5-45.6); Hemoglobin 12.5 gm/dl (11.8-15.2); Mean Corpuscular HGB Conc 34 % (32-34); Mean Corpuscular Hemoglobin 28 pg (28-32); Mean Corpuscular Volume 82 fl (84-94); Platelet Count 300 K/mm3 (140-440); Red Blood Count 4.45 M/mm3 (3.65-5.03); Red Cell Distribution Width 15.3 % (13.2-15.2)
[2017-08-13 04:59] LABS: Calcium 8.7 mg/dL (8.4-10.2)
[2017-08-13] MEDS: HEPARIN SUB-Q SCH ×3 (06:27→22:15)
[2017-08-13] MEDS: DELTASONE PO SCH ×3 (08:15→21:57)
[2017-08-13] MEDS: RENVELA PO SCH ×3 (08:15→16:44)
[2017-08-13] MEDS: PROCARDIA XL PO SCH ×2 (09:45→22:15)
[2017-08-13] MEDS: AZULFIDINE PO SCH (09:45)
[2017-08-13] MEDS: PLAQUENIL PO SCH (09:45)
[2017-08-13] MEDS: PEPCID IV SCH (09:46)
[2017-08-13] MEDS: APRESOLINE PO SCH ×2 (09:52→22:12)
[2017-08-13] MEDS: SODIUM CHLORIDE FLUSH SYRINGE 10 ML IV SCH (09:52)
[2017-08-13] MEDS: FLONASE NS SCH (09:53)
--- NOTE | 2017-08-13 12:37 | Progress Note ---
Assessment and Plan Abdomianl pain with n/v due to SBP ESRD, on HD Sepsis due to UTI/SBP Peritonitis/ SBP UTI HTN, uncontrolled h/o Lupus Anemia of CD - follow result peritoneal fluid gm stain and CX - continue on empiric abx - resumed home meds, - Cont PD per nephrology - heparin for DVT Brief History: 67-year-old -[place] male with h/o ESRD on PD, HTN and Lupus presents to the emergency department from home with complaint of a two- day history of generalized abdominal pain, associated with some nausea and vomiting. Patient was given stool softners/laxative outpt, also obtained peritoneal Cx, and cell count. Cell count from outpatient PD clinic showed WBC count > 4000, with 38% mononuclear and 61% polymorph, RBC 76, which is consistent with acute peritonitis. He was admitted for further work up and evaluation. physical exam: General appearance: Present: mild distress, well-nourished - EENT Eyes: Present: PERRL ENT: hearing intact, clear oral mucosa - Neck Neck: Present: supple, normal ROM - Respiratory Respiratory effort: normal Respiratory: bilateral: CTA - Cardiovascular Heart Sounds: Present: S1 & S2. Absent: rub, click - Extremities Extremities: pulses symmetrical, No edema Peripheral Pulses: within normal limits - Abdominal General gastrointestinal: Present: soft, tender, non-distended, normal bowel sounds - Integumentary Integumentary: Present: clear, warm, dry - Musculoskeletal Musculoskeletal: gait normal, strength equal bilaterally - Psychiatric Psychiatric: appropriate mood/affect, intact judgment & insight - Neurologic Neurologic: CNII-XII intact, moves all extremities Subjective Date of service: 08/13/17 Principal diagnosis: ESRD with Peritonitis Interval history: Pt seen and examined states abdominal pain much improved tolerating diet, peritoneal fluid cx result pending Objective - Constitutional Vitals: Vital Signs - 12hr 08/13/17 08/13/17 08/13/17 03:07 07:40 09:49 Temperature 98.0 F 98.4 F Pulse Rate 96 H 99 H 95 H Pulse Rate [ Apical] Respiratory 18 18 18 Rate Blood Pressure 106/56 144/68 Blood Pressure 140/86 [Right] O2 Sat by Pulse 96 95 94 Oximetry 08/13/17 08/13/17 09:52 10:00 Temperature Pulse Rate 92 H Pulse Rate [ 99 H Apical] Respiratory 18 Rate Blood Pressure 144/68 Blood Pressure [Right] O2 Sat by Pulse 95 Oximetry - Labs CBC & Chem 7: 08/14/17 05:14 08/14/17 05:14 Labs: Abnormal lab results 08/13/17 08/13/17 Range/Units 04:07 04:07 WBC 11.7 H (4.5-11.0) K/mm3 MCV 82 L (84-94) fl RDW 15.3 H (13.2-15.2) % Sodium 131 L D (137-145) mmol/L Chloride 90.9 L (98-107) mmol/L BUN 49 H (9-20) mg/dL Creatinine 8.8 H (0.8-1.5) mg/dL Glucose 168 H (75-100) mg/dL
--- NOTE | 2017-08-13 15:40 | Progress Note ---
Assessment and Plan - Patient Problems (1) Peritonitis Current Visit: Yes Status: Acute Plan to address problem: PD fluid cell count still quite high. Follow up PD fluid culture and sensitivity. Continue empiric antibiotics for now (2) Hypertensive chronic kidney disease with stage 5 chronic kidney disease or end stage renal disease Current Visit: Yes Status: Acute Plan to address problem: Follow up blood pressure on current medications (3) Secondary hyperparathyroidism (of renal origin) Current Visit: Yes Status: Acute Plan to address problem: Give Sensipar on calcitriol at bedtime to avoid nausea (4) ESRD needing dialysis Current Visit: Yes Status: Chronic Plan to address problem: Continue peritoneal dialysis on current prescription.. Subjective Date of service: 08/13/17 Principal diagnosis: ESRD with Peritonitis Interval history: Patient seen lying in bed. He feels better today. Pain is improving. PD fluid still a dark yellow. No nausea or vomiting. Sister and her fianc at bedside Objective - Exam Narrative Exam: Elderly male lying in bed in no acute distress HEENT: NCAT, pink oral mucous membrane Neck: Supple, no venous distention CVS: S1S2 RRR with no murmur, rub or gallop Chest: Clear to auscultation Abdomen: Protuberant, soft, mild tenderness improving, no organomegaly, bowel sounds are present Extremities: No edema Neuro: Awake, alert no focal deficits - Vital Signs Vital signs: Vital Signs - 12hr 08/13/17 08/13/17 08/13/17 07:40 09:49 09:52 Temperature 98.4 F Pulse Rate 99 H 95 H 92 H Pulse Rate [ Apical] Respiratory 18 18 Rate Blood Pressure 106/56 144/68 144/68 O2 Sat by Pulse 95 94 Oximetry 08/13/17 08/13/17 10:00 13:20 Temperature 98.7 F Pulse Rate 96 H Pulse Rate [ 99 H Apical] Respiratory 18 18 Rate Blood Pressure 129/52 O2 Sat by Pulse 95 96 Oximetry - Lab 08/13/17 04:07 08/13/17 04:07 Most recent lab results Calcium 8.7 mg/dL (8.4-10.2) 08/13/17 04:07 Phosphorus 4.30 mg/dL (2.5-4.5) 08/13/17 04:07
[2017-08-13] MEDS: SODIUM CHLORIDE FLUSH SYRINGE 10 ML IV PRN (16:01)
[2017-08-13] MEDS: MAXIPIME 1 GM in NACL 0.9% 20 ML IV SCH (16:01)
[2017-08-13] MEDS: SENSIPAR PO SCH (22:14)
[2017-08-13] MEDS: ROCALTROL PO SCH (22:15)
[2017-08-14] MEDS: DIANEAL LOW CALCIUM W/1.5% DEXTROSE IP SCH ×2 (00:34→06:31)
[2017-08-14] MEDS: SODIUM CHLORIDE FLUSH SYRINGE 10 ML IV SCH ×3 (02:01→22:39)
[2017-08-14] MEDS: PERCOCET 5/325 PO PRN ×2 (02:01→19:34)
[2017-08-14 05:34] LABS: Hematocrit 34.8 % (35.5-45.6); Hemoglobin 11.9 gm/dl (11.8-15.2); Lymphocytes # (Auto) 0.6 K/mm3 (1.2-5.4); Lymphocytes % (Auto) 6.5 % (13.4-35.0); Mean Corpuscular HGB Conc 34 % (32-34); Mean Corpuscular Hemoglobin 28 pg (28-32); Mean Corpuscular Volume 83 fl (84-94); Monocytes # (Auto) 0.6 K/mm3 (0.0-0.8); Monocytes % (Auto) 6.2 % (0.0-7.3); Platelet Count 303 K/mm3 (140-440); Red Blood Count 4.22 M/mm3 (3.65-5.03)
[2017-08-14 05:57] LABS: Calcium 7.6 mg/dL (8.4-10.2)
[2017-08-14] MEDS: HEPARIN SUB-Q SCH ×3 (06:30→22:43)
[2017-08-14] MEDS: RENVELA PO SCH ×3 (07:51→16:22)
[2017-08-14] MEDS: DELTASONE PO SCH ×3 (07:51→19:34)
[2017-08-14] MEDS: AZULFIDINE PO SCH (09:43)
[2017-08-14] MEDS: PROCARDIA XL PO SCH ×2 (09:43→22:38)
[2017-08-14] MEDS: PLAQUENIL PO SCH (09:44)
[2017-08-14] MEDS: APRESOLINE PO SCH ×2 (09:45→22:38)
[2017-08-14] MEDS: PEPCID IV SCH (09:45)
[2017-08-14] MEDS: FLONASE NS SCH (09:46)
--- NOTE | 2017-08-14 10:13 | Progress Note ---
Assessment and Plan - Patient Problems (1) Peritonitis Current Visit: Yes Status: Acute Plan to address problem: PD fluid cell count was not done yesterday. Follow up PD fluid cell count. If improving, patient could be discharged to continue broad empiric antibiotics for 2 weeks for culture-negative PD related peritonitis (2) Hypertensive chronic kidney disease with stage 5 chronic kidney disease or end stage renal disease Current Visit: Yes Status: Acute Plan to address problem: Follow up blood pressure on current medications (3) Secondary hyperparathyroidism (of renal origin) Current Visit: Yes Status: Acute Plan to address problem: Give Sensipar on calcitriol at bedtime to avoid nausea (4) ESRD needing dialysis Current Visit: Yes Status: Chronic Plan to address problem: Continue peritoneal dialysis on current prescription except change to high calcium dialysate since patient is developing hypocalcemia. Subjective Date of service: 08/14/17 Principal diagnosis: ESRD with Peritonitis Interval history: Patient seen lying in bed. He feels better today. Pain is improving. No nausea or vomiting. PD fluid culture done at the outpatient dialysis clinic so far has no growth Objective - Exam Narrative Exam: Elderly male lying in bed in no acute distress HEENT: NCAT, pink oral mucous membrane Neck: Supple, no venous distention CVS: S1S2 RRR with no murmur, rub or gallop Chest: Clear to auscultation Abdomen: Protuberant, soft, mild tenderness improving, no organomegaly, bowel sounds are present Extremities: No edema Neuro: Awake, alert no focal deficits - Vital Signs Vital signs: Vital Signs - 12hr 08/13/17 08/14/17 08/14/17 22:12 03:50 05:01 Temperature 98.9 F Pulse Rate 99 H 98 H Pulse Rate [ 99 H Apical] Respiratory Rate Blood Pressure 135/79 Blood Pressure [Right] O2 Sat by Pulse 96 96 Oximetry 08/14/17 08/14/17 08/14/17 05:07 07:40 08:10 Temperature 98.2 F Pulse Rate 95 H Pulse Rate [ 95 H Apical] Respiratory 18 18 Rate Blood Pressure 117/82 Blood Pressure 121/78 [Right] O2 Sat by Pulse 94 96 96 Oximetry 08/14/17 09:45 Temperature Pulse Rate 89 Pulse Rate [ Apical] Respiratory Rate Blood Pressure 128/82 Blood Pressure [Right] O2 Sat by Pulse Oximetry - Lab 08/14/17 05:14 08/14/17 05:14 Most recent lab results Calcium 7.6 mg/dL (8.4-10.2) L 08/14/17 05:14 Phosphorus 4.30 mg/dL (2.5-4.5) 08/13/17 04:07
[2017-08-14] MEDS: DIANEAL PD-2 W/1.5% DEXTROSE IP SCH ×2 (12:13→18:12)
--- NOTE | 2017-08-14 13:57 | Discharge Summary ---
Providers - Providers Date of Admission: 08/11/17 11:39 Date of discharge: 08/14/17 Attending physician: ROSY BUTT 08/11/17 11:29 Consult to Physician [CONS] Routine Comment: Consulting Provider: MATTEO GARCIA Physician Instructions: CALLED DR GARCIA @0815 08/12/17(MARIS) Reason For Exam: dialysis, ckd Primary care physician: MATTEO GARCIA Hospitalization Condition: Stable Hospital course: Brief History: 67-year-old -Irish male with h/o ESRD on PD, HTN and Lupus presents to the emergency department from home with complaint of a two- day history of generalized abdominal pain, associated with some nausea and vomiting. Patient was given stool softners/laxative outpt, also obtained peritoneal Cx, and cell count. Cell count from outpatient PD clinic showed WBC count > 4000, with 38% mononuclear and 61% polymorph, RBC 76, which is consistent with acute peritonitis. He was admitted for further work up and evaluation. Discharge Diagnosis: Abdomianl pain with n/v due to SBP ESRD, on HD Sepsis due to UTI/SBP Peritonitis/ SBP UTI HTN, uncontrolled h/o Lupus Anemia of CD - negative peritoneal fluid CX - continue on empiric abx - resumed home meds, - Cont PD per nephrology - heparin for DVT physical exam: General appearance: Present: mild distress, well-nourished - EENT Eyes: Present: PERRL ENT: hearing intact, clear oral mucosa - Neck Neck: Present: supple, normal ROM - Respiratory Respiratory effort: normal Respiratory: bilateral: CTA - Cardiovascular Heart Sounds: Present: S1 & S2. Absent: rub, click - Extremities Extremities: pulses symmetrical, No edema Peripheral Pulses: within normal limits - Abdominal General gastrointestinal: Present: soft, tender, non-distended, normal bowel sounds - Integumentary Integumentary: Present: clear, warm, dry - Musculoskeletal Musculoskeletal: gait normal, strength equal bilaterally - Psychiatric Psychiatric: appropriate mood/affect, intact judgment & insight - Neurologic Neurologic: CNII-XII intact, moves all extremities Disposition: DC-01 TO HOME OR SELFCARE Time spent for discharge: 32 minutes Exam - Constitutional Vitals: Temp Pulse Resp BP Pulse Ox 98.2 F 95 H 18 128/82 96 08/14/17 07:40 08/14/17 10:00 08/14/17 10:00 08/14/17 09:45 08/14/17 10:00 Plan Follow up with: MATTEO GARCIA MD [Primary Care Provider] - 3-5 Days
--- NOTE | 2017-08-14 14:04 | Progress Note ---
Assessment and Plan Abdomianl pain with n/v due to SBP ESRD, on HD Sepsis due to UTI/SBP Peritonitis/ SBP UTI HTN, uncontrolled h/o Lupus Anemia of CD - negative peritoneal fluid gm stain and CX - continue on empiric abx. Discussed with ID RECOMMENDED vancomycin with PD and levaquin po for 2 weeks - resumed home meds, - Cont PD per nephrology - heparin for DVT - Wait for nephrology and CM to set up abx outpt Brief History: 67-year-old -[place] male with h/o ESRD on PD, HTN and Lupus presents to the emergency department from home with complaint of a two- day history of generalized abdominal pain, associated with some nausea and vomiting. Patient was given stool softners/laxative outpt, also obtained peritoneal Cx, and cell count. Cell count from outpatient PD clinic showed WBC count > 4000, with 38% mononuclear and 61% polymorph, RBC 76, which was consistent with acute peritonitis. He was admitted for further work up and evaluation. physical exam: General appearance: Present: mild distress, well-nourished - EENT Eyes: Present: PERRL ENT: hearing intact, clear oral mucosa - Neck Neck: Present: supple, normal ROM - Respiratory Respiratory effort: normal Respiratory: bilateral: CTA - Cardiovascular Heart Sounds: Present: S1 & S2. Absent: rub, click - Extremities Extremities: pulses symmetrical, No edema Peripheral Pulses: within normal limits - Abdominal General gastrointestinal: Present: soft, nontender, non-distended, normal bowel sounds - Integumentary Integumentary: Present: clear, warm, dry - Musculoskeletal Musculoskeletal: gait normal, strength equal bilaterally - Psychiatric Psychiatric: appropriate mood/affect, intact judgment & insight - Neurologic Neurologic: CNII-XII intact, moves all extremities Subjective Date of service: 08/14/17 Principal diagnosis: ESRD with Peritonitis Interval history: Pt seen and examined states abdominal pain much improved tolerating diet, peritoneal fluid cx result negative Objective - Constitutional Vitals: Vital Signs - 12hr 08/14/17 08/14/17 08/14/17 03:50 05:01 05:07 Temperature 98.9 F Pulse Rate 98 H Pulse Rate [ 99 H Apical] Respiratory Rate Blood Pressure Blood Pressure 121/78 [Right] O2 Sat by Pulse 96 96 94 Oximetry 08/14/17 08/14/17 08/14/17 07:40 09:45 10:00 Temperature 98.2 F Pulse Rate 95 H 89 Pulse Rate [ 95 H Apical] Respiratory 18 18 Rate Blood Pressure 117/82 128/82 Blood Pressure [Right] O2 Sat by Pulse 96 96 Oximetry - Labs CBC & Chem 7: 08/14/17 05:14 08/14/17 05:14 Labs: Abnormal lab results 08/14/17 08/14/17 Range/Units 05:14 05:14 Hct 34.8 L (35.5-45.6) % MCV 83 L (84-94) fl Lymph % (Auto) 6.5 L (13.4-35.0) % Lymph # 0.6 L (1.2-5.4) K/mm3 Seg Neutrophils % 87.3 H (40.0-70.0) % Seg Neutrophils # 8.5 H (1.8-7.7) K/mm3 Sodium 136 L (137-145) mmol/L Chloride 95.5 L (98-107) mmol/L BUN 46 H (9-20) mg/dL Creatinine 9.5 H (0.8-1.5) mg/dL Glucose 109 H (75-100) mg/dL Calcium 7.6 L (8.4-10.2) mg/dL
[2017-08-14] MEDS: SODIUM CHLORIDE FLUSH SYRINGE 10 ML IV PRN (15:38)
[2017-08-14] MEDS: MAXIPIME 1 GM in NACL 0.9% 20 ML IV SCH (15:38)
[2017-08-14] MEDS: COLACE PO PRN ×2 (18:14→22:43)
[2017-08-14] MEDS: SENSIPAR PO SCH (22:37)
[2017-08-14] MEDS: ROCALTROL PO SCH (22:38)
[2017-08-15] MEDS: DIANEAL PD-2 W/1.5% DEXTROSE IP SCH ×4 (00:24→18:27)
[2017-08-15 02:54] LABS: Total Cells Counted 100 /mm3
[2017-08-15] MEDS: HEPARIN SUB-Q SCH ×3 (06:52→22:00)
[2017-08-15] MEDS: RENVELA PO SCH ×3 (08:56→15:51)
[2017-08-15] MEDS: PEPCID PO SCH ×2 (08:56→10:33)
[2017-08-15] MEDS: DELTASONE PO SCH ×3 (08:56→21:14)
[2017-08-15] MEDS: APRESOLINE PO SCH ×3 (08:56→21:14)
[2017-08-15] MEDS: PLAQUENIL PO SCH ×2 (08:57→10:34)
[2017-08-15] MEDS: PROCARDIA XL PO SCH ×3 (08:57→21:14)
[2017-08-15] MEDS: AZULFIDINE PO SCH ×2 (08:57→10:33)
[2017-08-15] MEDS: SODIUM CHLORIDE FLUSH SYRINGE 10 ML IV PRN (08:58)
[2017-08-15] MEDS: SODIUM CHLORIDE FLUSH SYRINGE 10 ML IV SCH ×2 (08:59→21:15)
--- NOTE | 2017-08-15 09:00 | Consultation ---
History of Present Illness - Reason for Consult Consult date: 08/15/17 peritonitis Requesting physician: ROSY BUTT - History of Present Illness 67 years old male with history of ESRD on PD, PD cath placed in October 2016, HTN and Lupus; admitted on 08/11/2018 due to 40 hours history of crampy abdominal pain, diffuse, associated with nausea and vomiting. Pain became 10 out of 10 in intensity. He had recently constipation and bloating. Patient was given laxative and abdominal pain became worse. Patient denies seeing any cloudy effusate. Denies any recent fever, cough, shortness of breath. Patient had the fluid exam done by his outpatient hemodialysis provider. Cell count from outpatient PD clinic showed WBC count > 4000, with 38% mononuclear and 61% polymorph, RBC 76, which is consistent with acute peritonitis. In the emergency room, initial temperature was 99, heart rate 114, respiration 18, O2 sat 99, blood pressure 151/102. Initial white count 15.7. Hemoglobin 13. Platelets 308. That evening 8. Urinalysis show 106 white blood cells and large leukocyte esterase. Peritoneal fluid was hazy with 17,875 white blood cells and 90% of neutrophils. CT of the abdomen showed no collections or abscesses. Currently right fibrothorax and pleural effusion. Multiple kidney lesions. Microbiology: Blood cultures: 08/11 ngtd Urine cultures: 08/11 10-100K mixed bacteria Peritoneal fluid cultures: 08/12 ngtd Current Antimicrobials: cefepime 08/11 Previous Antimicrobials: Past History Past Medical History: ESRD, hypertension, other (lupus) Past Surgical History: hernia repair, total hip replacement, Other (multiple AV fistula placement proceedings) Social history: Lives alone. denies: smoking, alcohol abuse, prescription drug abuse, IV drug use Family history: hypertension Medications and Allergies Allergies Allergy/AdvReac Type Severity Reaction Status Date / Time No Known Allergies Allergy Unverified 04/27/15 14:36 Home Medications Medication Instructions Recorded Confirmed Last Taken Type NIFEdipine XL [Procardia Xl] 60 mg PO BID 10/01/15 08/11/17 08/10/17 History Cinacalcet HCl [Sensipar] 60 mg PO DAILY 02/12/16 08/11/17 02/11/16 History Calcitriol [Rocaltrol] 0.5 mcg PO TID 08/11/17 08/11/17 Unknown History Docusate Sodium [Colace] 100 mg PO BID PRN 08/11/17 08/11/17 08/10/17 History Ergocalciferol [Vitamin D2] 1 cap PO QWEEK 08/11/17 08/11/17 08/10/17 History Fluticasone [Flonase] 2 spray NS QDAY 08/11/17 08/11/17 Unknown History Hydralazine HCl 50 mg PO BID 08/11/17 08/11/17 08/10/17 History Hydroxychloroquine [Plaquenil] 200 mg PO QDAY 08/11/17 08/11/17 08/10/17 History Sevelamer Carbonate [Renvela] 800 mg PO TIDWM 08/11/17 08/11/17 Unknown History predniSONE [Deltasone] 10 mg PO TID 08/11/17 08/11/17 Unknown History sulfaSALAzine [Azulfidine] 500 mg PO QDAY 08/11/17 08/11/17 Unknown History Active Meds: Active Medications Acetaminophen (Tylenol) 650 mg PO Q4H PRN PRN Reason: Pain MILD(1-3)/Fever >100.5/HINES Last Admin: 08/13/17 18:52 Dose: 650 mg Calcitriol (Rocaltrol) 1 mcg PO QHS [facility] Last Admin: 08/14/17 22:38 Dose: 1 mcg Cinacalcet (Sensipar) 60 mg PO QHS [facility] Last Admin: 08/14/17 22:37 Dose: 60 mg Docusate Sodium (Colace) 100 mg PO BID PRN PRN Reason: Constipation Last Admin: 08/14/17 22:43 Dose: 100 mg Ergocalciferol (Vitamin D2) 50,000 unit PO Th [facility] Famotidine (Pepcid) 20 mg PO DAILY [facility] Fluticasone Propionate (Flonase) 100 mcg NS QDAY [facility] Last Admin: 08/14/17 09:46 Dose: Not Given Heparin Sodium (Porcine) (Heparin) 5,000 unit SUB-Q Q8HR [facility] Last Admin: 08/15/17 06:52 Dose: 5,000 unit Hydralazine HCl (Apresoline) 50 mg PO BID [facility] Last Admin: 08/14/17 22:38 Dose: 50 mg Hydroxychloroquine Sulfate (Plaquenil) 200 mg PO QDAY [facility] Last Admin: 08/14/17 09:44 Dose: 200 mg Cefepime HCl 1 gm/ Sodium (Chloride) 20 mls @ 2 mls/min IV Q24H [facility] Last Admin: 08/14/17 15:38 Dose: 2 mls/min Morphine Sulfate (Morphine) 2 mg IV Q4H PRN PRN Reason: Pain, Moderate (4-6) Last Admin: 08/13/17 21:57 Dose: 2 mg Nifedipine (Procardia Xl) 60 mg PO BID [facility] Last Admin: 08/14/17 22:38 Dose: 60 mg Ondansetron HCl (Zofran) 4 mg IV Q8H PRN PRN Reason: Nausea And Vomiting Last Admin: 08/13/17 22:07 Dose: 4 mg Oxycodone/Acetaminophen (Percocet 5/325) 1 tab PO Q6H PRN PRN Reason: Pain, Moderate (4-6) Last Admin: 08/14/17 19:34 Dose: 1 tab Peritoneal Dialysis Solution (Dianeal Pd-2 W/1.5% Dextrose) 2,000 ml IP Q6HR [facility] Last Admin: 08/15/17 06:44 Dose: 2,000 ml Prednisone (Deltasone) 10 mg PO TID [facility] Last Admin: 08/14/17 19:34 Dose: 10 mg Sevelamer Carbonate (Renvela) 800 mg PO AC [facility] Last Admin: 08/14/17 16:22 Dose: 800 mg Sodium Chloride (Sodium Chloride Flush Syringe 10 Ml) 10 ml IV BID [facility] Last Admin: 08/14/17 22:39 Dose: 10 ml Sodium Chloride (Sodium Chloride Flush Syringe 10 Ml) 10 ml IV PRN PRN PRN Reason: LINE FLUSH Last Admin: 08/14/17 15:38 Dose: 10 ml Sulfasalazine (Azulfidine) 500 mg PO QDAY [facility] Last Admin: 08/14/17 09:43 Dose: 500 mg Review of Systems ROS unobtainable: due to endotracheal tube, due to mental status All systems: negative (as HPI rest of 10 point review system negative) Physical Examination - Physical Exam Narrative exam: General appearance: Alert in NAD, conversant Eyes: anicteric sclerae, moist conjunctivae; no lid-lag; PERRLA HENT: Atraumatic; oropharynx clear with moist mucous membranes and no mucosal ulcerations/no oral thrush; normal hard and soft palate. Normal external ears. Neck: Trachea midline; supple, no thyromegaly or lymphadenopathy Lungs: CTA, with normal respiratory effort and no intercostal retractions CV: RRR, no murmurs Abdomen: Soft, non tender +PD cath Extremities: No peripheral edema or extremity lymphadenopathy Skin: Normal temperature, turgor and texture; no rash, ulcers or subcutaneous nodules Psych: Appropriate affect, alert and oriented to person, place and time. Neuro: alert and oriented x 3. Moving all extermities Lines: No CVL / PICC - Constitutional Vitals: Vital Signs Temp Pulse Resp BP Pulse Ox 99.2 F 106 H 20 134/81 91 08/15/17 07:48 08/15/17 07:48 08/15/17 07:48 08/15/17 07:48 08/15/17 07:48 Temperature -Last 24 Hours Temperature 99.2 F Temperature 98.5 F Temperature 97.9 F Temperature 98.6 F Results - Labs CBC & Chem 7: 08/14/17 05:14 08/14/17 05:14 Assessment and Plan Assessment: 1) Sepsis: Present on admission, manifested by low grade fever, tachycardia, leukocytosis. Etiology most likely PD catheter-associated peritonitis +/- UTI 2) PD catheter-associated peritonitis: cultures negative -outpatient fluid WBC 4,000 -fluid WBC 17,875 -repeat fluid WBC 41 3) UTI: urine cx 10-100K mixed bacteria 4) ESRD on PD Plan: -restart vancomycin via PD -continue cefepime IV -obtain outpatient peritoneal cultures -upon discharge will ask Renal to please order vancomycin via PD and levaquin 500 mg PO q48h for total 14 days until 08/29/17 Thank you for your consultation, will follow up with you. Rachele Long MD Infectious Diseases Specialist [facility] ([facility] M [phone] O [phone]
[2017-08-15] MEDS: FLONASE NS SCH (10:34)
[2017-08-15] MEDS ORDERED: VANCOMYCIN PHARMACY TO DOSE IV SCH (13:00)
[2017-08-15] MEDS ORDERED: VANCOMYCIN/0.45 NS 1 GM/250 ML 1 GM/250 ML BAG IV SCH (13:00)
[2017-08-15] MEDS ORDERED: MORPHINE IV PRN (13:00)
[2017-08-15] MEDS: MAXIPIME 1 GM in NACL 0.9% 20 ML IV SCH (15:50)
--- NOTE | 2017-08-15 17:14 | Progress Note ---
Assessment and Plan Assessment and plan: --End-stage renal disease on peritoneal dialysis; continue PD per schedule --Sepsis secondary to peritonitis due to peritoneal dialysis Cultures negative to date, continue vancomycin and Levaquin ID following, vancomycin during dialysis, Levaquin oral will be set up upon discharge --Sepsis secondary to urinary tract infection; continue current antibiotics --Hypertension; moderate controlled, continue current antihypertensives and when necessary medications --History of lupus; stable on medications --Anemia of chronic disease; closely monitor H&H transfuse as needed --DVT prophylaxis; heparin renal dose --DC planning. Case management; for outpatient antibiotics plan: Levaquin Possible discharge in 1-2 days if stable, cleared by nephrology Consults and recommendations noted and appreciated Plan of care is reviewed with the patient and his nurse History Interval history: Patient seen and examined medical records reviewed No new events reported by the nursing staff Receiving antibiotics for peritonitis Patient feels better Alert awake oriented 3 not in acute distress Vital signs reviewed Hospitalist Physical - Constitutional Vitals: Temp Pulse Resp BP Pulse Ox 99.2 F 100 H 20 160/103 98 08/15/17 07:48 08/15/17 14:08 08/15/17 07:48 08/15/17 14:08 08/15/17 14:08 General appearance: Present: no acute distress, well-nourished - EENT Eyes: Present: PERRL, EOM intact - Neck Neck: Present: supple, normal ROM - Respiratory Respiratory effort: normal Respiratory: bilateral: diminished, negative: rales, rhonchi, wheezing - Cardiovascular Rhythm: regular Heart Sounds: Present: S1 & S2 - Extremities Extremities: no ischemia, No edema - Abdominal General gastrointestinal: soft, non-tender, non-distended, normal bowel sounds - Integumentary Integumentary: Present: clear, warm - Psychiatric Psychiatric: appropriate mood/affect, cooperative - Neurologic Neurologic: CNII-XII intact, moves all extremities Results - Labs CBC & Chem 7: 08/14/17 05:14 08/14/17 05:14 Labs: Laboratory Last Values WBC 9.8 K/mm3 (4.5-11.0) 08/14/17 05:14 RBC 4.22 M/mm3 (3.65-5.03) 08/14/17 05:14 Hgb 11.9 gm/dl (11.8-15.2) 08/14/17 05:14 Hct 34.8 % (35.5-45.6) L 08/14/17 05:14 MCV 83 fl (84-94) L 08/14/17 05:14 MCH 28 pg (28-32) 08/14/17 05:14 MCHC 34 % (32-34) 08/14/17 05:14 RDW 15.0 % (13.2-15.2) 08/14/17 05:14 Plt Count 303 K/mm3 (140-440) 08/14/17 05:14 Lymph % (Auto) 6.5 % (13.4-35.0) L 08/14/17 05:14 [place] % (Auto) 6.2 % (0.0-7.3) 08/14/17 05:14 Eos % (Auto) 0.0 % (0.0-4.3) 08/14/17 05:14 Baso % (Auto) 0.0 % (0.0-1.8) 08/14/17 05:14 Lymph # 0.6 K/mm3 (1.2-5.4) L 08/14/17 05:14 [place] # 0.6 K/mm3 (0.0-0.8) 08/14/17 05:14 Eos # 0.0 K/mm3 (0.0-0.4) 08/14/17 05:14 Baso # 0.0 K/mm3 (0.0-0.1) 08/14/17 05:14 Seg Neutrophils % 87.3 % (40.0-70.0) H 08/14/17 05:14 Seg Neutrophils # 8.5 K/mm3 (1.8-7.7) H 08/14/17 05:14 Sodium 136 mmol/L (137-145) L 08/14/17 05:14 Potassium 4.2 mmol/L (3.6-5.0) 08/14/17 05:14 Chloride 95.5 mmol/L (98-107) L 08/14/17 05:14 Carbon Dioxide 26 mmol/L (22-30) 08/14/17 05:14 Anion Gap 19 mmol/L 08/14/17 05:14 BUN 46 mg/dL (9-20) H 08/14/17 05:14 Creatinine 9.5 mg/dL (0.8-1.5) H 08/14/17 05:14 Estimated GFR 7 ml/min 08/14/17 05:14 BUN/Creatinine Ratio 5 % 08/14/17 05:14 Glucose 109 mg/dL (75-100) H 08/14/17 05:14 Calcium 7.6 mg/dL (8.4-10.2) L 08/14/17 05:14 Phosphorus 4.30 mg/dL (2.5-4.5) 08/13/17 04:07 Total Bilirubin 0.50 mg/dL (0.1-1.2) 08/11/17 02:59 AST 13 units/L (5-40) 08/11/17 02:59 ALT 7 units/L (7-56) 08/11/17 02:59 Alkaline Phosphatase 81 units/L (35-129) 08/11/17 02:59 Total Protein 7.4 g/dL (6.3-8.2) 08/11/17 02:59 Albumin 3.2 g/dL (3.9-5) L 08/11/17 02:59 Albumin/Globulin Ratio 0.8 % 08/11/17 02:59 Urine Color Yellow (Yellow) 08/11/17 06:30 Urine Turbidity Clear (Clear) 08/11/17 06:30 Urine pH 7.0 (5.0-7.0) 08/11/17 06:30 Ur Specific [place] 1.015 (1.003-1.030) 08/11/17 06:30 Urine Protein 100 mg/dl mg/dL (Negative) 08/11/17 06:30 Urine Glucose (UA) 50 mg/dL (Negative) 08/11/17 06:30 Urine Ketones Neg mg/dL (Negative) 08/11/17 06:30 Urine Blood Neg (Negative) 08/11/17 06:30 Urine Nitrite Neg (Negative) 08/11/17 06:30 Urine Bilirubin Neg (Negative) 08/11/17 06:30 Urine Urobilinogen < 2.0 mg/dL (<2.0) 08/11/17 06:30 Ur Leukocyte Esterase Lg (Negative) 08/11/17 06:30 Urine WBC (Auto) 106.0 /HPF (0.0-6.0) H 08/11/17 06:30 Urine RBC (Auto) 6.0 /HPF (0.0-6.0) 08/11/17 06:30 U Epithel Cells (Auto) 7.0 /HPF (0-13.0) 08/11/17 06:30 Urine Mucus Few /HPF 08/11/17 06:30 Fluid Type Peritoneal 08/15/17 01:00 Fluid Color Straw 08/15/17 01:00 Fluid Appearance Clear 08/15/17 01:00 Fluid WBC 38 /mm3 08/15/17 01:00 Fluid RBC 15 /mm3 08/15/17 01:00 Fluid Seg Neutrophils 65.0 % 08/15/17 01:00 Fluid Lymphocytes 19.0 % 08/15/17 01:00 Fluid Reactive Lymphs Not Reportable 08/15/17 01:00 Fluid Monocytes 14.0 % 08/15/17 01:00 Fluid Eosinophils 2.0 % 08/15/17 01:00 Fluid Basophils Not Reportable 08/15/17 01:00
--- NOTE | 2017-08-15 17:39 | Progress Note ---
Assessment and Plan - Patient Problems (1) Peritonitis Current Visit: Yes Status: Acute Plan to address problem: PD fluid cell count is down to normal. Patient could be discharged to continue broad empiric antibiotics for 2 weeks for culture-negative PD related peritonitis (2) Hypertensive chronic kidney disease with stage 5 chronic kidney disease or end stage renal disease Current Visit: Yes Status: Acute Plan to address problem: Follow up blood pressure on current medications (3) Secondary hyperparathyroidism (of renal origin) Current Visit: Yes Status: Acute Plan to address problem: Give Sensipar on calcitriol at bedtime to avoid nausea (4) ESRD needing dialysis Current Visit: Yes Status: Chronic Plan to address problem: Continue peritoneal dialysis on current prescription with calcium dialysate Subjective Date of service: 08/15/17 Principal diagnosis: ESRD with Peritonitis Interval history: Patient seen lying in bed. He feels better today. Pain is improving. No nausea or vomiting. PD fluid culture done at the outpatient dialysis clinic so far has no growth. Objective - Exam Narrative Exam: Elderly male lying in bed in no acute distress HEENT: NCAT, pink oral mucous membrane Neck: Supple, no venous distention CVS: S1S2 RRR with no murmur, rub or gallop Chest: Clear to auscultation Abdomen: Protuberant, soft, mild tenderness improving, no organomegaly, bowel sounds are present Extremities: No edema Neuro: Awake, alert no focal deficits - Vital Signs Vital signs: Vital Signs - 12hr 08/15/17 08/15/17 07:48 14:08 Temperature 99.2 F Pulse Rate 106 H 100 H Respiratory 20 Rate Blood Pressure 134/81 160/103 O2 Sat by Pulse 91 98 Oximetry - Lab 08/14/17 05:14 08/14/17 05:14 Most recent lab results Calcium 7.6 mg/dL (8.4-10.2) L 08/14/17 05:14 Phosphorus 4.30 mg/dL (2.5-4.5) 08/13/17 04:07
[2017-08-15] MEDS: SENSIPAR PO SCH (21:13)
[2017-08-15] MEDS: ROCALTROL PO SCH (21:13)
[2017-08-15] MEDS: COLACE PO PRN (21:19)
[2017-08-16] MEDS: DIANEAL PD-2 W/1.5% DEXTROSE IP SCH ×3 (06:12→11:58)
[2017-08-16] MEDS: HEPARIN SUB-Q SCH ×2 (06:30→13:30)
[2017-08-16] MEDS: RENVELA PO SCH ×3 (07:54→16:23)
[2017-08-16] MEDS ORDERED: MILK OF MAGNESIA PO NR (08:00)
[2017-08-16] MEDS ORDERED: DULCOLAX PR NR (08:00)
[2017-08-16] MEDS: DELTASONE PO SCH ×2 (08:37→13:29)
[2017-08-16] MEDS: AZULFIDINE PO SCH (09:40)
[2017-08-16] MEDS: PEPCID PO SCH (09:40)
[2017-08-16] MEDS: PLAQUENIL PO SCH (09:40)
[2017-08-16] MEDS: PROCARDIA XL PO SCH (09:41)
[2017-08-16] MEDS: APRESOLINE PO SCH (09:41)
[2017-08-16] MEDS: FLONASE NS SCH (09:42)
[2017-08-16] MEDS ORDERED: VANCOMYCIN/0.45 NS 1 GM/250 ML 1 GM/250 ML BAG IV SCH (10:00)
[2017-08-16] MEDS: SODIUM CHLORIDE FLUSH SYRINGE 10 ML IV SCH (10:46)
--- NOTE | 2017-08-16 10:56 | Progress Note ---
Assessment and Plan - Patient Problems (1) Peritonitis Current Visit: Yes Status: Acute Plan to address problem: PD fluid cell count is down to normal. Patient could be discharged to continue broad empiric antibiotics for 2 weeks for culture-negative PD related peritonitis. Infectious disease consultation noted. Patient received vancomycin intravenously yesterday. We'll continue vancomycin intraperitoneally as an outpatient. No need to give vancomycin IP today. (2) Hypertensive chronic kidney disease with stage 5 chronic kidney disease or end stage renal disease Current Visit: Yes Status: Acute Plan to address problem: Follow up blood pressure on current medications (3) Secondary hyperparathyroidism (of renal origin) Current Visit: Yes Status: Acute Plan to address problem: Give Sensipar on calcitriol at bedtime to avoid nausea (4) ESRD needing dialysis Current Visit: Yes Status: Chronic Plan to address problem: Continue peritoneal dialysis on current prescription with calcium dialysate Subjective Date of service: 08/16/17 Principal diagnosis: ESRD with Peritonitis Interval history: Patient seen lying in bed. He feels better today. Abdominal pain has resolved. No nausea or vomiting. PD fluid culture done at the outpatient dialysis clinic so far has no growth. Objective - Exam Narrative Exam: Elderly male lying in bed in no acute distress HEENT: NCAT, pink oral mucous membrane Neck: Supple, no venous distention CVS: S1S2 RRR with no murmur, rub or gallop Chest: Clear to auscultation Abdomen: Protuberant, soft,No tenderness, no organomegaly, bowel sounds are present Extremities: No edema Neuro: Awake, alert no focal deficits - Vital Signs Vital signs: Vital Signs - 12hr 08/16/17 08/16/17 08/16/17 02:00 02:09 02:10 Temperature 98.2 F Pulse Rate 93 H 95 H Respiratory 18 Rate Blood Pressure Blood Pressure 162/90 [Right] O2 Sat by Pulse 96 97 Oximetry 08/16/17 08/16/17 07:47 09:41 Temperature 97.7 F Pulse Rate 100 H 91 H Respiratory 16 Rate Blood Pressure 159/97 150/90 Blood Pressure [Right] O2 Sat by Pulse 97 Oximetry - Lab 08/14/17 05:14 08/14/17 05:14 Most recent lab results Calcium 7.6 mg/dL (8.4-10.2) L 08/14/17 05:14 Phosphorus 4.30 mg/dL (2.5-4.5) 08/13/17 04:07
--- NOTE | 2017-08-16 13:54 | Progress Note ---
Assessment and Plan Assessment: 1) Sepsis: resolved. Etiology most likely PD catheter-associated peritonitis +/ - UTI 2) PD catheter-associated peritonitis: cultures negative -outpatient fluid WBC 4,000 -fluid WBC 17,875 -repeat fluid WBC 38 3) UTI: urine cx 10-100K mixed bacteria 4) ESRD on PD Plan: -upon discharge will ask Renal to please order vancomycin via PD and levaquin 500 mg PO q48h for total 14 days until 08/29/17 -ID clinic f/u in 2 weeks Thank you for your consultation, will follow up with you. Rachele Long MD Infectious Diseases Specialist [facility] [place] M [phone] O [phone] Subjective Date of service: 08/16/17 Principal diagnosis: ESRD with Peritonitis Interval history: Feels better, no abdominal pain, no fever. Microbiology: Blood cultures: 08/11 ngtd Urine cultures: 08/11 10-100K mixed bacteria Peritoneal fluid cultures: 08/12 no growth Current Antimicrobials: cefepime 08/11 Previous Antimicrobials: Objective - Exam Narrative Exam: General appearance: Alert in NAD, conversant Eyes: anicteric sclerae, moist conjunctivae; no lid-lag; PERRLA HENT: Atraumatic; oropharynx clear with moist mucous membranes and no mucosal ulcerations/no oral thrush; normal hard and soft palate. Normal external ears. Neck: Trachea midline; supple, no thyromegaly or lymphadenopathy Lungs: CTA, with normal respiratory effort and no intercostal retractions CV: RRR, no murmurs Abdomen: Soft, non tender +PD cath Extremities: No peripheral edema or extremity lymphadenopathy Skin: Normal temperature, turgor and texture; no rash, ulcers or subcutaneous nodules Psych: Appropriate affect, alert and oriented to person, place and time. Neuro: alert and oriented x 3. Moving all extermities Lines: No CVL / PICC - Constitutional Vitals: Vital Signs Temp Pulse Resp BP Pulse Ox 97.7 F 91 H 16 150/90 97 08/16/17 07:47 08/16/17 09:41 08/16/17 07:47 08/16/17 09:41 08/16/17 07:47 Temperature -Last 24 Hours Temperature 97.7 F Temperature 98.2 F Temperature 98.5 F - Labs CBC & Chem 7: 08/14/17 05:14 08/14/17 05:14
--- NOTE | 2017-08-16 13:59 | Discharge Summary ---
Providers - Providers Date of Admission: 08/11/17 11:39 Date of discharge: 08/16/17 Attending physician: DANIELITO QUEZADA 08/11/17 11:29 Consult to Physician [CONS] Routine Comment: Consulting Provider: MATTEO GARCIA Physician Instructions: CALLED DR GARCIA @0815 08/12/17(MARIS) Reason For Exam: dialysis, ckd Primary care physician: MATTEO GARCIA Hospitalization Condition: Stable Disposition: DC/[place]-06 HOME [facility] Time spent for discharge: 32 min Core Measure Documentation - Palliative Care Palliative Care/ Comfort Measures: Not Applicable - Core Measures Any of the following diagnoses?: none Exam - Constitutional Vitals: Temp Pulse Resp BP Pulse Ox 97.7 F 91 H 16 150/90 97 08/16/17 07:47 08/16/17 09:41 08/16/17 07:47 08/16/17 09:41 08/16/17 07:47 General appearance: Present: no acute distress, well-nourished - EENT Eyes: Present: PERRL, EOM intact - Neck Neck: Present: supple, normal ROM - Respiratory Respiratory effort: normal Respiratory: negative: rales, rhonchi, wheezing - Cardiovascular Rhythm: regular Heart Sounds: Present: S1 & S2 - Extremities Extremities: no ischemia, No edema - Abdominal General gastrointestinal: Present: soft, non-tender, non-distended, normal bowel sounds - Integumentary Integumentary: Present: clear, warm - Musculoskeletal Musculoskeletal: strength equal bilaterally - Psychiatric Psychiatric: appropriate mood/affect, cooperative - Neurologic Neurologic: CNII-XII intact, moves all extremities Plan Activity: no restrictions Diet: renal Additional Instructions: vancomycin via PD for total 14 days until 08/29/17[ renal will follow with PD]. levaquin 500 mg PO q48h total 14 days until 08/29/17 [prescription given]. f/uID clinic f/u in 2 weeks. PD per schedule Follow up with: MATTEO GARCIA MD [Primary Care Provider] - 3-5 Days MELODIE THOMPSON MD [Staff Physician] - 7 Days Prescriptions: Levofloxacin [Levaquin TAB] 500 mg PO Q48H #7 tablet
[2017-08-16 14:37] VITALS: BP 121/97
[2017-08-16] MEDS: MAXIPIME 1 GM in NACL 0.9% 20 ML IV SCH (16:22)
[2017-08-17] MEDS ORDERED: VITAMIN D2 PO SCH (10:00)
== END 2017-08-16 18:20 | disposition home health service (06) | DRG 871 ==
LOC: ED 23:57 → 2B-ACE 08-11 11:39
PROVIDERS: ADMIT Internal Medicine; ATTEND Internal Medicine
PROC: 3E1M39Z Irrigation of Peritoneal Cavity using Dialysate, Percutaneous Approach (ICD-10-PCS; principal; 2017-08-12)
PROC: 3E1M39Z Irrigation of Peritoneal Cavity using Dialysate, Percutaneous Approach (ICD-10-PCS; 2017-08-13)
PROC: 3E1M39Z Irrigation of Peritoneal Cavity using Dialysate, Percutaneous Approach (ICD-10-PCS; 2017-08-14)
DX: A41.9 Sepsis, unspecified organism (principal); N18.6 End stage renal disease; K65.2 Spontaneous bacterial peritonitis; T85.71XA Infection and inflammatory reaction due to peritoneal dialysis catheter, initial encounter; I12.0 Hypertensive chronic kidney disease with stage 5 chronic kidney disease or end stage renal disease; N30.00 Acute cystitis without hematuria; N25.81 Secondary hyperparathyroidism of renal origin; Z99.2 Dependence on renal dialysis; M32.9 Systemic lupus erythematosus, unspecified; Z60.2 Problems related to living alone; Z82.49 Family history of ischemic heart disease and other diseases of the circulatory system; Z79.899 Other long term (current) drug therapy; D63.8 Anemia in other chronic diseases classified elsewhere; J44.9 Chronic obstructive pulmonary disease, unspecified; Z96.643 Presence of artificial hip joint, bilateral; Z87.891 Personal history of nicotine dependence
CPT/HCPCS: 36415; 74176; 80048; 80053; 81001; 84100; 85025; 85027; 87040; 87086; 87116; 89051; 96365; 96374; J0692; J0696; J1200; J1644; J1956; J2270; J2405; J3370; J7050; J7512